=== PATIENT | female | born 1990 | race Caucasian/White ===

== ENCOUNTER 2024-06-23 00:02 | Emergency (ER) | payer MEDICAID ==
[~2024-06-23] VITALS: Ht 167.6 cm; Wt 76.6 kg
[2024-06-23 00:15] VITALS: O2SAT 98
[2024-06-23 00:55] LABS: BASOPHILS % 1.1 % (0.0-2.0); EOSINOPHILS % 0.7 % (0.0-5.0); HEMATOCRIT. 38.9 % (36.0-48.0); HEMOGLOBIN. 13.4 g/dL (12.0-16.0); LYMPHOCYTES % 14.8 % (20.0-50.0); MEAN CORPUSCULAR HGB CONC 34.4 g/dL (31.0-37.0); MEAN CORPUSCULAR VOLUME 98.7 fL (81.0-99.0); MEAN PLATELET VOLUME 7.5 fl (7.4-10.4); MONOCYTES % 11.9 % (2.0-8.0); NEUTROPHILS % 71.5 % (40.0-76.0); PLATELET 124 x1000/uL (130-400); RED BLOOD CELL COUNT 3.94 mill/uL (4.2-5.4); RED CELL DISTRIBUTION WIDTH 12.7 % (11.6-14.6); WHITE BLOOD COUNT 2.7 x1000/uL (4.5-11.0)
[2024-06-23] MEDS: ONDANSETRON HCL 4MG/2ML INJ IV ONE (00:57)
[2024-06-23] MEDS: SODIUM CHLORIDE 0.9% 1,000 ML IV ONE (00:58)
[2024-06-23 01:06] LABS: CARBON DIOXIDE 28 mEq/L (21-32); CHLORIDE 91 mEq/L (98-107); POTASSIUM 3.1 mEq/L (3.5-5.1); SODIUM 133 mEq/L (136-145)
[2024-06-23 01:07] LABS: CALCIUM 9.5 mg/dL (8.7-10.4)
[2024-06-23 01:11] LABS: CREATININE 0.7 mg/dL (0.6-1.0); GLUCOSE 104 mg/dL (70-105)
[2024-06-23 01:12] LABS: UREA NITROGEN BLOOD 6 mg/dL (9-23)
[2024-06-23 01:13] LABS: ALANINE AMINOTRANSFERASE 44 IU/L (10-49); ALBUMIN 4.6 g/dL (3.2-4.8); ASPARTATE AMINOTRANSFERASE 75 IU/L (<34)
[2024-06-23 01:14] LABS: BILIRUBIN DIRECT 0.4 mg/dL (<=3.0); BILIRUBIN TOTAL 1.4 mg/dL (0.1-1.0); PHOSPHORUS 3.4 mg/dL (2.5-4.9); PROTEIN TOTAL 8.1 g/dL (6.0-8.3)
[2024-06-23 01:18] LABS: HCG SCREEN NEGATIVE
[2024-06-23 01:30] LABS: ETHANOL BLOOD < 10 mg/dL (<10)
[2024-06-23 01:37] LABS: PROTHROMBIN TIME 11.1 sec (9.6-11.0)
[2024-06-23 02:24] LABS: CLARITY URINE CLOUDY (CLEAR); COLOR URINE ORANGE (YELLOW); GLUCOSE URINE NEGATIVE (NEGATIVE); KETONES URINE 4+ (NEGATIVE); LEUKOCYTE ESTERASE URINE 2+ (NEGATIVE); NITRITE URINE POSITIVE (NEGATIVE); OCCULT BLOOD URINE 3+ (NEGATIVE); PH URINE 6.5 (4.5-8.0); PROTEIN URINE 2+ (NEGATIVE); SPECIFIC GRAVITY URINE 1.024 (1.005-1.030)
[2024-06-23] MEDS: POTASSIUM CHLORIDE 20MEQ/PACKET PO NR (02:24)
[2024-06-23] MEDS: MAGNESIUM 2 G PREMIX 50 ML IV NR (02:24)
[2024-06-23 02:31] LABS: *AMPHETAMINES SCREEN URINE NEGATIVE (NEGATIVE); *BENZODIAZEPINES SCREEN URINE NEGATIVE (NEGATIVE)
[2024-06-23 02:32] LABS: *BARBITURATES SCREEN URINE NEGATIVE (NEGATIVE); *COCAINE SCREEN URINE NEGATIVE (NEGATIVE); CANNABINOID URINE SCREEN NEGATIVE (NEGATIVE); ECSTASY MDMA SCREEN URINE NEGATIVE (NEGATIVE); METHADONE URINE SCREEN NEGATIVE (NEGATIVE); OPIATES URINE SCREEN NEGATIVE (NEGATIVE); PHENCYCLIDINE URINE SCREEN NEGATIVE (NEGATIVE)
[2024-06-23 03:02] LABS: SQUAMOUS EPITHELIAL CELL URINE 2+ /lpf (RARE/1+)
[2024-06-23 03:03] LABS: BACTERIA URINE 3+
[2024-06-23] MEDS ORDERED: CEPH500C2 MT (04:13)
[2024-06-23] MEDS ORDERED: MAGN64TA9 MT (04:13)
[2024-06-23 04:36] VITALS: BP 158/105; PULSE 71; RESP 14; O2SAT 98
== END 2024-06-23 05:00 | disposition home or self-care (01) ==
LOC: ER 00:02
DX: F10.20 Alcohol dependence, uncomplicated (principal); E83.42 Hypomagnesemia; I10 Essential (primary) hypertension; Z00.00 Encounter for general adult medical examination without abnormal findings; Z79.899 Other long term (current) drug therapy; Y90.0 Blood alcohol level of less than 20 mg/100 ml
CPT/HCPCS: 80076; 80305; 80048; 81003; 80320; 84703; 83690; 83735; 84100; 85025; 85610; 87086; 87186; 87077; 36415; 96361; 96365; 96366; 96375; 99284; J3475; J2405; J7030; Z7610; G0480